=== PATIENT | female | born 1965 ===

== ENCOUNTER 2019-06-18 10:56 | Emergency (ER) | payer OTHER ==
[2019-06-18] MEDS ORDERED: Acyclovir 400 MG Tab ONE (11:30)
[2019-06-18] MEDS ORDERED: Acyclovir 400 MG Tab PO SCH (14:00)
== END 2019-06-18 12:33 | disposition home or self-care (01) ==
LOC: LB.ED 10:56 → MERGE 10:56 → LB.ED 12:33
DX: B02.9 Zoster without complications (principal)
CPT/HCPCS: 99283; A9270